=== PATIENT | female | born 1990 | race African-American/Black ===

== ENCOUNTER 2017-01-23 21:40 | Emergency (ER) | payer SELFPAY ==
[~2017-01-23 21:40] MED LIST: HYDR-4446 PO; IBUP-2213 PO
--- NOTE | 2017-01-23 22:20 | NUR ---
PATIENT LEFT WITHOUT BEING SEEN BY DR. JEAN. NO FURTHER CARE PROVIDED FOR PATIENT. PT NAME WAS CALLED 3X AND NO RESPONSE FROM [facility]
== END 2017-01-23 22:20 | disposition left against medical advice (07) ==
LOC: MED 21:40
DX: Z53.21 Procedure and treatment not carried out due to patient leaving prior to being seen by health care provider (principal)

== ENCOUNTER 2017-03-30 00:05 | Emergency (ER) | payer MEDICAID ==
[~2017-03-30] VITALS: Ht 157.5 cm; Wt 74.4 kg
[2017-03-30 00:13] VITALS: BP 150/74
--- NOTE | 2017-03-30 01:05 | NUR ---
PATIENT LEFT WITHOUT BEING SEEN BY DR. GALAVIZ. NO FURTHER CARE PROVIDED FOR PATIENT.
== END 2017-03-30 01:05 | disposition left against medical advice (07) ==
LOC: MED 00:05
DX: H92.02 Otalgia, left ear (principal); Z53.21 Procedure and treatment not carried out due to patient leaving prior to being seen by health care provider